=== PATIENT | female | born 2000 | race African-American/Black ===

== ENCOUNTER 2021-02-09 08:24 | Emergency (ER) | payer OTHER ==
[~2021-02-09] VITALS: Ht 162.6 cm; Wt 87.1 kg
[2021-02-09 08:30] VITALS: BP 126/75
--- NOTE | 2021-02-09 08:35 | NUR ---
Dr. Howard is evaluating the patient at bedside.
--- NOTE | 2021-02-09 08:49 | NUR ---
lead manufacturing technician at bedside.
--- NOTE | 2021-02-09 08:50 | NUR ---
20 YEAR OLD FEMALE COMPLAINS OF MECHANICAL FALL X YESTERDAY. PT COMPLAINS OF LACERATION TO RIGHT PALM, AND RIGHT ANKLE PAIN AFTER FALL. RIGHT HAND RADIAL PULSE +2, CAP REFILL<3 SEC, SENSATION INTACT. PT STATES SHE THINKS THERE ARE STILL SOME PLASTIC PIECES IN RIGHT HAND FROM OBJECT SHE FELL ONTO. PT DENIES HITTING HEAD OR LOC. AOX4, BREATHING EVEN AND UNLABORED, SKIN WARM AND DRY. BED IN LOWEST POSITION, LOCKED, BED RAIL UPX1. PMH - DENIES ALLERGIES - NKA
[2021-02-09] MEDS ORDERED: NAPR-54 PO (09:46)
[2021-02-09 10:07] VITALS: BP 126/75
--- NOTE | 2021-02-09 10:07 | NUR ---
Patient discharged with v/s stable. Written and verbal after care instructions about foot contusion, hand contusion, abrasion given and explained. Patient alert, oriented and verbalized understanding of instructions. Ambulatory with steady gait. All questions addressed prior to discharge. ID band removed. Patient advised to follow up with PMD. Rx of naprosyn given. Patient educated on indication of medication including possible reaction and side effects. Opportunity to ask questions provided and answered.
== END 2021-02-09 10:07 | disposition home or self-care (01) ==
LOC: MED 08:24
DX: S90.01XA Contusion of right ankle, initial encounter (principal); S60.221A Contusion of right hand, initial encounter; Z79.899 Other long term (current) drug therapy; W19.XXXA Unspecified fall, initial encounter; Y93.89 Activity, other specified; Y92.89 Other specified places as the place of occurrence of the external cause; Y99.8 Other external cause status
CPT/HCPCS: 73130; 73610; 73630; 90471; 90715; 99284

== ENCOUNTER 2021-02-12 16:42 | Emergency (ER) | payer OTHER ==
[~2021-02-12] VITALS: Ht 162.6 cm; Wt 87.5 kg
[~2021-02-12 16:42] MED LIST: NAPR-54 PO
[2021-02-12 16:48] VITALS: BP 128/87
== END 2021-02-12 17:40 | disposition left against medical advice (07) ==
LOC: MED 16:42
DX: Z48.00 Encounter for change or removal of nonsurgical wound dressing (principal); Z53.21 Procedure and treatment not carried out due to patient leaving prior to being seen by health care provider

== ENCOUNTER 2021-02-13 17:15 | Emergency (ER) | payer OTHER ==
[~2021-02-13] VITALS: Ht 165.1 cm; Wt 87.5 kg
[2021-02-13 17:50] VITALS: BP 131/80
[2021-02-13 18:12] VITALS: BP 131/80
== END 2021-02-13 18:13 | disposition home or self-care (01) ==
LOC: MED 17:15
DX: S96.911A Strain of unspecified muscle and tendon at ankle and foot level, right foot, initial encounter (principal); R03.0 Elevated blood-pressure reading, without diagnosis of hypertension; Z79.899 Other long term (current) drug therapy; X58.XXXA Exposure to other specified factors, initial encounter; Y93.89 Activity, other specified; Y92.89 Other specified places as the place of occurrence of the external cause; Y99.8 Other external cause status
CPT/HCPCS: 99281